=== PATIENT | female | born 1985 | race Caucasian/White ===

== ENCOUNTER → 2017-03-16 | Outpatient (CLI) | payer OTHER ==
[~2017-03-16] MED LIST: IOPAMIDOL 76% 50 ML INFUS BTL 50 ML ONE; IOPAMIDOL 76% 75 ML INFUS BTL 75 ML ONE; NS 0.9% 50 ML VIAL 100 ML ONE
--- NOTE | 2017-03-16 12:23 | RADIOLOGY IMAGING REPORT ---
FACILITY: [facility] PATIENT NAME: Cece Soto : 1985 MR: [id number] V: [id number] EXAM DATE: ORDERING PHYSICIAN: BRENDA ENGLISH TECHNOLOGIST: [facility] Patient: Cece Soto : 1985 Visit/Account:[id number] Date of Sevice: 03/16/2017 VENOUS DOPP LOW RIGHT EXTREMIT Indication: Right leg pain. Comparison: None. Procedure: There has been satisfactory grayscale as well as color flow and Doppler waveform analysis of the deep vessels of the right lower extremity. Findings: The common femoral, profunda femoral, superficial femoral, popliteal and infrapopliteal ves sels so far as visualized are compressible with grayscale imaging. All these vessels show flow with c olor Doppler imaging. Following calf compression there is normal directional augmentation of the Dopp ler waveform. Note that one of the posterior tibial veins is noncompressible and is difficult to see flow in. Differential diagnosis would include prior thrombus, acute thrombus or nonvisualization re lated to technical features. The proximal right greater saphenous vein is compressible with grayscale imaging and color flow cassidy sis shows normal flow. The Doppler waveform shows normal direction of flow. The left common femoral vein on the other side has normal flow with respiratory variation identified. IMPRESSION: 1. No prominent findings of deep vein thrombosis. 2. Of note one of the posterior tibial veins in the calf cannot be seen while the other can. Differ ential diagnosis would include technical nonvisualization, acute DVT of just this vein or chronic thr ombus of this vein. Correlation clinical findings recommended. Results were called to BRENDA ENGLISH M.D. At 03/16/2017 12:18 PM. Report Dictated By: Francesco Meredith MD at 03/16/2017 12:05 PM Report E-Signed By: Francesco Meredith MD at 03/16/2017 12:18 PM WSN:[id number]
--- NOTE | 2017-03-16 15:19 | RADIOLOGY IMAGING REPORT ---
FACILITY: [facility] - [place] PATIENT NAME: Cece Soto : 1985 MR: [id number] V: [id number] EXAM DATE: ORDERING PHYSICIAN: BRENDA ENGLISH TECHNOLOGIST: [place] [facility] [place]: Cece Soto : 1985 Visit/Account:[id number] Date of Sevice: 03/16/2017 CTA CHEST WW/O CNTR (PULM ANG) HISTORY: Shortness of breath ADDITIONAL HISTORY: None. TECHNIQUE: CTA chest with intravenous contrast. Axial imaging acquired following administration of IV contrast timed for maximum opacification of the pulmonary arterial vasculature. Slab 3-D MIP steven nstructed images were also created for further evaluation and interpretation. Reconstruction of the [facility] data set includes multiplanar 2-D in the sagittal and coronal planes and 3-D reconstructed marissa nal slab MIP series. 3-D images were created by the technologist. Dose Lowering Technique One of the following dose optimization techniques was utilized in the performance of this exam: Autom ated exposure control; adjustment of the mA and/or kV according to the patient's size; or use of an i terative reconstruction technique. Specific details can be referenced in the facility's radiology C T exam operational policy. CONTRAST: 75 mL Isovue-370 COMPARISON: None. FINDINGS: Lungs/pleura: There are minimal reticular changes seen in the inferior aspect of the right middle lo be Heart/vessels: Pulmonary emboli identified in the lobar segmental and subsegmental arterial branches to the right upper lobe and both lower lobes and right middle lobe and segmental and subsegmental ar terial branches to the left upper lobe. Mediastinum/lymph nodes: There is a small amount of soft tissue density material in the anterior med iastinum which may represent residual thymic tissue Visualized upper abdomen: Negative. Bones/soft tissues: Mild spondylotic changes of the thoracic spine Additional findings: None IMPRESSION: There is a moderate volume bilateral pulmonary emboli as described above Minimal reticular changes in the inferior aspect of the right middle lobe likely dependent changes There is a small amount soft tissue density material in the anterior mediastinum which may represent residual thymic tissue Results were called to BRENDA ENGLISH at 03/16/2017 3:13 PM. Report Dictated By: Ceci Rockwell MD at 03/16/2017 2:57 PM Report E-Signed By: Ceci Rockwell MD at 03/16/2017 3:15 PM WSN:[email or web address]
== END ==
LOC: US 10:35
PROVIDERS: ATTEND Physician Assistant
DX: I26.99 Other pulmonary embolism without acute cor pulmonale (principal); R91.8 Other nonspecific abnormal finding of lung field
CPT/HCPCS: 71275; 93971; J7050; Q9967

== ENCOUNTER → 2017-03-16 | Outpatient (REF) | payer OTHER | LOC: ZZSENDIN 10:42 | PROVIDERS: ATTEND Physician Assistant | DX: R06.02 Shortness of breath (principal) | CPT/HCPCS: 81025; 85379 ==

== ENCOUNTER → 2017-03-16 | Outpatient (CLI) | payer OTHER ==
[2017-03-16 18:35] LABS: INR 0.95
== END ==
LOC: LAB 16:40
PROVIDERS: ATTEND Physician Assistant
DX: R60.0 Localized edema (principal)
CPT/HCPCS: 36415; 81241; 85300; 85306; 85384; 85610; 85613; 85730

== ENCOUNTER 2017-04-05 08:30 | Outpatient (RCR) | payer OTHER ==
[2017-03-29 08:22] VITALS: BP 126/95
--- NOTE | 2017-03-29 17:21 | CONSULTATION ---
EVENT DATE: March 29, 2017] REFERRING PHYSICIAN Merry Harley REASON FOR CONSULTATION Evaluation and management of pulmonary embolus. HISTORY OF PRESENT ILLNESS Patient is a 31-year-old female with known history of depression and anxiety who was maintained on oral contraceptive pills since the age of 16, who presented with a swollen right leg with pain and redness the whole of the month of February, and this was followed by chest tightness, palpitations and weakness , and the patient fainted at home. So she saw her primary care provider, Merry Harley, who started a workup for venous thromboembolism. Patient had a double ultrasound on March 16, 2017 which was suggestive of right posterior tibial vein thrombosis. CTA of the chest done on March 16, 2017 showed bilateral pulmonary embolism involving lobar segmental and subsegmental arterial branches of the right upper lobe, right middle lobe and right lower lobe and left lower lobe, and subsegmental arterial branches of the left upper lobe. Patient started treatment with Xarelto. She is currently on 15 mg twice daily and she will have it for another week prior to going to 20 mg once daily. She had workup for thrombophilia including lupus anticoagulant, protein S activities, antithrombin III, factor V Leiden, and all came back negative. PAST MEDICAL HISTORY 1. Pseudotumor cerebri on Diamox. 2. Depression and anxiety with suicidal ideation, on treatment. PAST SURGICAL HISTORY 1. Lumbar puncture. 2. Extraction of impacted tooth. SOCIAL HISTORY Patient is with no children. 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 She is a never smoker. She drinks occasionally. Denies any abuse of illicit drugs. FAMILY HISTORY Negative for cancer or blood diseases. CURRENT MEDICATIONS 1. Diamox 500 mg once daily. 2. Citalopram 40 mg once daily. 3. Bupropion 75 mg twice daily. 4. Cyclobenzaprine 10 mg as needed. 5. Diclofenac as needed. 6. Xarelto 15 mg twice daily. ALLERGIES PENCILLIN while she was young and does not remember the reaction. REVIEW OF SYSTEMS: CONSTITUTIONAL: No appetite or weight change. No fever, chills or sweating. No recent infection. HEENT: Ears: No tinnitus or hearing problem. Nose: She has epistaxis since she started on blood thinner. Throat: No sore throat or mouth ulcers. Eyes: No diplopia or visual changes. RESPIRATORY: She has shortness of breath, which is getting much better after starting anticoagulation with Xarelto. CARDIOVASCULAR: No chest pain, orthopnea, or paroxysmal nocturnal dyspnea (PND) . No edema. No palpitations. GASTROINTESTINAL: No nausea or vomiting. No diarrhea or constipation. No change in bowel movements. No heartburn or swallowing difficulties. No abdominal pain. No jaundice. No hematemesis, melena or rectal bleeding. GENITOURINARY: No hematuria or dysuria. MUSCULOSKELETAL: She has tension in her muscles of the neck and shoulders. NEUROLOGICAL: She has headache with flare-up of pseudotumor cerebri. HEMATOLOGIC/LYMPHATIC: She bruises easily. She is tired. SKIN: No skin rash or lumps. PSYCHIATRIC: No anxiety or depression. PHYSICAL EXAMINATION GENERAL: Looks stable. Well-developed, well-nourished, and in no acute distress. VITAL SIGNS: Blood pressure 126/95, pulse 104 per minute, respirations 18 per minute, temperature 97.61 pulse oximetry 90% on room air. HEENT: Head: Atraumatic. No sinus tenderness to palpation. Eyes: No icterus or conjunctivitis. Mouth and throat: No oral thrush or mucositis. NECK: Supple. No cervical or supraclavicular lymphadenopathy. LUNGS: Clear to auscultation and percussion bilaterally. HEART: Regular rate and rhythm. No gallops, murmurs, clicks or rubs. ABDOMEN: Soft and lax. No tenderness. No hepatosplenomegaly. No masses. EXTREMITIES: No cyanosis, clubbing or edema. LYMPHATICS: No peripheral lymphadenopathy. NEUROLOGICAL: Conscious, alert and oriented times three. No focal motor or sensory deficits. PSYCHIATRIC: Mood and affect appear normal. SKIN: No skin rash, bruise or purpuric eruption. ASSESSMENT 1. Right leg deep venous thrombosis, most probably in the posterior tibial vein with moderate volume pulmonary embolism involving lobar segmental and subsegmental of the right upper lobe, right middle lobe, right lower lobe and left lower lobe with subsegmental arterial involvement of the left upper lobe. Patient was maintained on oral contraceptive pills and patient was advised to quit oral contraceptive pills as the estrogen could be the underlying cause for her blood clotting. Thrombophilia workup was negative, but complete thrombophilia workup was not done, so I am planning to complete her thrombophilia workup, so I am planning to check her anticardiolipin antibodies, beta 2 glycoprotein antibodies, antiphospholipid antibody panel, prothrombin gene mutation, protein C activities and total antigen, and fasting homocysteine level. I am planning to continue anticoagulation for at least one year, and if the patient will have an underlying thrombophilia disease, she may be a candidate for lifelong anticoagulation. I explained that to the patient and she is agreeable with the plan of management. 2. Pseudotumor cerebri on diamox. 3. Depression/anxiety, on treatment. PLAN 1. Thrombophilia workup. 2. Continue Xarelto for at least one year. 3. Patient to return in one week for further evaluation and management. 4. Patient is to contact us for any new concerns or complaints. ELOINA
[~2017-04-05] VITALS: Ht 167.6 cm; Wt 118.3 kg
[~2017-04-05 08:30] MED LIST changes: +ACET500C35 PO; +BUPR-147 PO; +CITA-139 PO; +CYCL10TA29 PO; +DICL-195 PO; -IOPAMIDOL 76% 50 ML INFUS BTL 50 ML ONE; -IOPAMIDOL 76% 75 ML INFUS BTL 75 ML ONE; -NS 0.9% 50 ML VIAL 100 ML ONE; +RIVA1TAB PO
[2017-04-05 08:36] VITALS: BP 127/88
[2017-04-05] MEDS ORDERED: LEVO1TBD PO (08:39)
--- NOTE | 2017-04-05 09:27 | EL-TARABILY ONCOLOGY NOTE ---
EVENT DATE: April 05, 2017 DIAGNOSES 1. Right leg deep vein thrombosis involving the posterior tibial vein. 2. Pulmonary embolism bilaterally. CHIEF COMPLAINT Patient is here today for follow up of her venothromboembolus and possible thrombophilia. HEMATOLOGY HISTORY Patient is a 31-year-old female with known history of depression and anxiety who was maintained on oral contraceptive pills since the age of 16, who presented with a swollen right leg with pain and redness the whole of the month of February, and this was followed by chest tightness, palpitations and weakness , and the patient fainted at home. So she saw her primary care provider, Merry Harley, who started a workup for venous thromboembolism. Patient had a double ultrasound on March 16, 2017 which was suggestive of right posterior tibial vein thrombosis. CTA of the chest done on March 16, 2017 showed bilateral pulmonary embolism involving lobar segmental and subsegmental arterial branches of the right upper lobe, right middle lobe and right lower lobe and left lower lobe, and subsegmental arterial branches of the left upper lobe. Patient started treatment with Xarelto. She is currently on 15 mg twice daily and she will have it for another week prior to going to 20 mg once daily. She had workup for thrombophilia including lupus anticoagulant, protein S activities, antithrombin III, factor V Leiden, and all came back negative. Anticardiolipin antibodies, beta 2 glycoprotein antibodies, protein C antigen and functional protein C all came back normal. All of the labs for the phospholipid antibody syndrome panel came back negative, but some tests are still pending. HISTORY OF PRESENT ILLNESS Patient is doing fine today. She does not have complaint except for occasional swelling of her right lower extremity, especially on prolonged sitting. PAST MEDICAL HISTORY 1. Pseudotumor cerebri on Diamox. 2. Depression and anxiety with suicidal ideation, on treatment. PAST SURGICAL HISTORY 1. Lumbar puncture. 2. Extraction of impacted tooth. SOCIAL HISTORY Patient is with no children. 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 She is a never smoker. She drinks occasionally. Denies any abuse of illicit drugs. FAMILY HISTORY Negative for cancer or blood diseases. CURRENT MEDICATIONS 1. Diamox 500 mg once daily. 2. Citalopram 40 mg once daily. 3. Bupropion 75 mg twice daily. 4. Cyclobenzaprine 10 mg as needed. 5. Diclofenac as needed. 6. Xarelto 15 mg twice daily. ALLERGIES PENICILLIN while she was young and does not remember the reaction. REVIEW OF SYSTEMS CONSTITUTIONAL: No appetite or weight change. No fever, chills or sweating. No recent infection. HEENT: Ears: No tinnitus or hearing problem. Nose: No nasal discharge or epistaxis. Throat: No sore throat or mouth ulcers. Eyes: No diplopia or visual changes. RESPIRATORY: No shortness of breath. No cough, expectoration or hemoptysis. CARDIOVASCULAR: No chest pain, orthopnea, or paroxysmal nocturnal dyspnea (PND) . No edema. No palpitations. GASTROINTESTINAL: No nausea or vomiting. No diarrhea or constipation. No change in bowel movements. No heartburn or swallowing difficulties. No abdominal pain. No jaundice. No hematemesis, melena or rectal bleeding. GENITOURINARY: No hematuria or dysuria. MUSCULOSKELETAL: Patient has edema of the right lower extremity sometimes, especially on prolonged sitting or standing. NEUROLOGICAL: No tingling or numbness in the hands or feet. No headaches or convulsions. HEMATOLOGIC/LYMPHATIC: No bleeding or easy bruising. No weakness or fatigued. No enlarged lymph nodes. SKIN: No skin rash or lumps. PSYCHIATRIC: No anxiety or depression. PHYSICAL EXAMINATION GENERAL: Looks stable. Well-developed, well-nourished, and in no acute distress. VITAL SIGNS: Blood pressure 127/88, pulse 108 per minute, respirations 16 per minute, temperature 98.9, pulse oximetry 91% on room air. HEENT: Head: Atraumatic. No sinus tenderness to palpation. Eyes: No icterus or conjunctivitis. Mouth and throat: No oral thrush or mucositis. NECK: Supple. No cervical or supraclavicular lymphadenopathy. LUNGS: Clear to auscultation and percussion bilaterally. HEART: Regular rate and rhythm. No gallops, murmurs, clicks or rubs. ABDOMEN: Soft and lax. No tenderness. No hepatosplenomegaly. No masses. EXTREMITIES: No cyanosis, clubbing or edema. LYMPHATICS: No peripheral lymphadenopathy. NEUROLOGICAL: Conscious, alert and oriented times three. No focal motor or sensory deficits. PSYCHIATRIC: Mood and affect appear normal. SKIN: No skin rash, bruise or purpuric eruption. DIAGNOSTIC/LABORATORY STUDIES Protein C antigen is normal at 86%. Functional protein C is normal at 129%. Anticardiolipin antibodies are negative. Beta 2 glycoprotein antibodies are also negative. The antiphospholipid antibody panel, so far all the tests done are negative, but some of the tests are still pending. ASSESSMENT 1. Right leg deep vein thrombosis, most probably involving the posterior tibial vein with moderate volume pulmonary embolism involving lobar segmental and subsegmental of the right upper lobe, right middle lobe and right lower lobe and left lower lobe with subsegmental arterial involvement of the left upper lobe. Patient is maintained on Xarelto. She was actually on oral contraceptive pills when she had her blood clot, which was discontinued. Thrombophilia workup so far is negative. I will await the rest of the antiphospholipid antibody panel, and if those tests come back negative, I will continue anticoagulation for a total of one year, but if those tests come back positive, then will repeat the positive test in another three months to be sure that the patient has antiphospholipid antibody syndrome, and if this is the case with the volume of her pulmonary embolism, she may be a candidate for lifelong anticoagulation. I explained that to the patient. She is agreeable with the plan of management. I am planning to see her in in 6 months unless her tests will come back positive, then we will repeat those tests in 3 months, and I will see her after that. 2. Pseudotumor cerebri on Diamox. 3. Depression and anxiety, on treatment. PLAN 1. Await the result of the antiphospholipid antibody panel. 2. Continue Xarelto for at least one year. 3. Patient to return in six months. 4. Patient is to contact us for any new concerns or complaints. ELOINA
== END 2017-04-06 10:04 | disposition home or self-care (01) ==
LOC: ONC 08:30
PROVIDERS: ATTEND Internal Medicine Hematology
DX: I82.401 Acute embolism and thrombosis of unspecified deep veins of right lower extremity (principal); I26.99 Other pulmonary embolism without acute cor pulmonale; G93.2 Benign intracranial hypertension; Z79.01 Long term (current) use of anticoagulants; Z79.899 Other long term (current) drug therapy
CPT/HCPCS: 81240; 83090; 83516; 85302; 85303; 86146; 86147; 86148; 99202; 99212

== ENCOUNTER 2017-11-01 14:49 | Outpatient (RCR) | payer OTHER ==
[~2017-11-01 14:49] MED LIST changes: -CITA-139 PO; +CITA-145 PO; +LEVO1TBD PO
[2017-11-01 15:08] VITALS: BP 125/91
--- NOTE | 2017-11-01 18:52 | EL-TARABILY ONCOLOGY NOTE ---
EVENT DATE: November 01, 2017 DIAGNOSES 1. Right leg deep vein thrombosis involving the posterior tibial vein. 2. Pulmonary embolism bilaterally. CHIEF COMPLAINT Patient is here today for followup of her venous thromboembolism and possible thrombophilia. HEMATOLOGY HISTORY Patient is a 32-year-old female with known history of depression and anxiety who was maintained on oral contraceptive pills since the age of 16. She presented with a swollen right leg with pain and redness the whole of the month of February. This was followed by chest tightness, palpitations, and weakness, and the patient fainted at home. She saw her primary care provider, Merry Harley, who started a workup for venous thromboembolism. Patient had a double ultrasound on March 16, 2017, which was suggestive of right posterior tibial vein thrombosis. CTA of the chest done on March 16, 2017, showed bilateral pulmonary embolism involving lobar segmental and subsegmental arterial branches of the right upper lobe, right middle lobe, right lower lobe, left lower lobe, and subsegmental arterial branches of the left upper lobe. Patient started treatment with Xarelto. She is currently on 15 mg twice daily, and she will have it for another week prior to going to 20 mg once daily. She had workup for thrombophilia including lupus anticoagulant, protein S activities , antithrombin III, factor V Leiden, and all came back negative. Anticardiolipin antibodies, beta-2 glycoprotein antibodies, protein C antigen, and functional protein C all came back normal. All of the labs for the phospholipid antibody syndrome panel came back negative, but some tests are still pending. HISTORY OF PRESENT ILLNESS Patient is here today followup of her venous thromboembolism. She is complaining of easy bruising and some fatigue which she attributed to being out of shape, but other than that, she is really doing fine. PAST MEDICAL HISTORY 1. Pseudotumor cerebri, on Diamox. 2. Depression and anxiety with suicidal ideation, on treatment. PAST SURGICAL HISTORY 1. Lumbar puncture. 2. Extraction of impacted tooth. SOCIAL HISTORY Patient is with no children. 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 She is a never smoker. She drinks occasionally. Denies any abuse of illicit drugs. FAMILY HISTORY Negative for cancer or blood diseases. CURRENT MEDICATIONS 1. Diamox 500 mg once daily. 2. Citalopram 40 mg once daily. 3. Bupropion 75 mg twice daily. 4. Cyclobenzaprine 10 mg as needed. 5. Diclofenac as needed. 6. Xarelto 15 mg twice daily. ALLERGIES PENICILLIN while she was young and does not remember the reaction. REVIEW OF SYSTEMS CONSTITUTIONAL: No appetite or weight change. No fever, chills, or sweating. No recent infection. HEENT: Ears: No tinnitus or hearing problem. Nose: No nasal discharge or epistaxis. Throat: No sore throat or mouth ulcers. Eyes: No diplopia or visual changes. RESPIRATORY: No shortness of breath. No cough, expectoration, or hemoptysis. CARDIOVASCULAR: No chest pain, orthopnea, or paroxysmal nocturnal dyspnea (PND) . No edema. No palpitations. GASTROINTESTINAL: No nausea or vomiting. No diarrhea or constipation. No change in bowel movements. No heartburn or swallowing difficulties. No abdominal pain. No jaundice. No hematemesis, melena, or rectal bleeding. GENITOURINARY: No hematuria or dysuria. MUSCULOSKELETAL: Patient has edema of the right lower extremity sometimes, especially on prolonged sitting or standing. NEUROLOGICAL: No tingling or numbness in the hands or feet. No headaches or convulsions. HEMATOLOGIC/LYMPHATIC: She bruises easily. She is weak, tired, and fatigued. No enlarged lymph nodes. SKIN: No skin rash or lumps. PSYCHIATRIC: No anxiety or depression. PHYSICAL EXAMINATION GENERAL: Looks stable. Well developed, well nourished, and in no acute distress. VITAL SIGNS: Blood pressure 125/91, pulse 77 per minute, respirations 16 per minute, temperature 98.1, pulse ox 95% on room air. HEENT: Head: Atraumatic. No sinus tenderness to palpation. Eyes: No icterus or conjunctivitis. Mouth and throat: No oral thrush or mucositis. NECK: Supple. No cervical or supraclavicular lymphadenopathy. LUNGS: Clear to auscultation and percussion bilaterally. HEART: Regular rate and rhythm. No gallops, murmurs, clicks, or rubs. ABDOMEN: Soft and lax. No tenderness. No hepatosplenomegaly. No masses. EXTREMITIES: No cyanosis, clubbing, or edema. LYMPHATICS: No peripheral lymphadenopathy. NEUROLOGICAL: Conscious, alert, and oriented times three. No focal motor or sensory deficits. PSYCHIATRIC: Mood and affect appear normal. SKIN: No skin rash, bruise, or purpuric eruption. DIAGNOSTIC DATA Antiphospholipid antibody testing including anticardiolipin antibody, beta-2 glycoprotein antibody, antiphospholipid antibody panel, and lupus anticoagulant all came back normal. Protein C functional total and free all came normal. ASSESSMENT 1. Right leg deep vein thrombosis involving posterior tibial vein with moderate volume pulmonary embolus involving lobar segmental and subsegmental branches of the right upper lobe, right middle lobe, right lower lobe, and left lower lobe, with subsegmental arterial involvement of the left upper lobe. The patient started Xarelto in March 2017, and she has maintained on Xarelto so far. She was on oral contraceptive pills when she had her blood clot, which were discontinued. Thrombophilia workup is negative. Her antiphospholipid antibody panel, protein C activity, and total antigen all came back negative. I am planning to continue anticoagulation for a total of one year, so I am planning to see the patient again in March 2018, and most probably we will stop anticoagulation at that time. Patient was advised to avoid the use of estrogenic compounds in the future, especially oral contraceptive pills. 2. Pseudotumor cerebri, on Diamox. 3. Depression and anxiety, on treatment. PLAN 1. Continue Xarelto for a total of one year. 2. Patient to return in March 2018. 3. Patient is to contact us for any new concerns or complaints. ELOINA
== END 2017-12-12 08:59 | disposition home or self-care (01) ==
LOC: ONC 14:49
PROVIDERS: ATTEND Internal Medicine Hematology
DX: I82.401 Acute embolism and thrombosis of unspecified deep veins of right lower extremity (principal); I26.92 Saddle embolus of pulmonary artery without acute cor pulmonale; Z79.01 Long term (current) use of anticoagulants; Z79.899 Other long term (current) drug therapy; R60.0 Localized edema; R06.02 Shortness of breath; F32.9 Major depressive disorder, single episode, unspecified
CPT/HCPCS: 99212

== ENCOUNTER 2018-04-05 07:14 | Outpatient (RCR) | payer OTHER ==
[2018-04-05 14:57] VITALS: BP 130/98
--- NOTE | 2018-04-09 17:48 | ONCOLOGY FOLLOW UP NOTE ---
EVENT DATE: April 05, 2018 CHIEF COMPLAINT Followup for right lower extremity DVT and bilateral pulmonary emboli. HISTORY OF PRESENT ILLNESS Patient is a 32-year-old female who was seen today in followup. She has now been on Xarelto for a total of one year. Overall, she has tolerated this well. She has had no issues with bleeding. She does have known pseudotumor cerebri and feels she needs to follow up with Neurology. She has had no issues with lower extremity swelling, shortness of breath, or chest discomfort. She does note some mild discomfort in the right lower extremity, but no indications of further clotting. HEMATOLOGY HISTORY Patient is a 32-year-old female who was maintained on oral contraceptives since age 16. She presented with a swelling in her right leg which had been ongoing the month of February 2017. This was followed by chest tightness, palpitations, and weakness. Patient fainted at home. She was then seen and underwent ultrasound with CT angiogram. Ultrasound on 03/16/17 showed a right posterior tibial vein thrombosis. CT angiogram on 03/16/17 showed bilateral pulmonary emboli involving lobar, segmental, and subsegmental arterial branches of the right upper lobe, right middle lobe, right lower lobe, left lower lobe, and subsegmental arterial branches of the left upper lobe. She began treatment with Xarelto in February 2017. Hypercoagulable workup was negative. MEDICAL HISTORY 1. DVT/bilateral PE, February 2017. 2. Pseudotumor cerebri, on Diamox. 3. Depression and anxiety. SURGICAL HISTORY 1. Lumbar puncture. 2. Extraction of impacted tooth. FAMILY HISTORY Negative for malignancy or blood disorders. SOCIAL HISTORY Patient is . She has no children. 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 She is a never smoker. She drinks occasionally. She denies abuse of illicit drugs. MEDICATIONS 1. Diamox 500 mg daily. 2. Bupropion 75 mg b.i.d. 3. Xarelto 20 mg daily. 4. Citalopram 20 mg daily. REVIEW OF SYSTEMS A 12-point review of systems is performed and is negative except as stated above. PHYSICAL EXAMINATION VITAL SIGNS: BP 130/88, pulse 86, respirations 16, temp 99.2, O2 sat 98%. GENERAL: Patient is well-developed, well-nourished female in no acute distress. HEAD: Normocephalic, atraumatic. EYES: Sclerae anicteric. MOUTH: Moist mucous membranes. NECK: Supple. No palpable adenopathy. LUNGS: Slightly diminished, but clear bilaterally. CARDIOVASCULAR: Heart rate regular, 86 per minute, without murmur, S3, or S4. EXTREMITIES: No edema. NEUROLOGIC: Nonfocal. IMPRESSION AND PLAN The patient is a 32-year-old female who had been on oral contraceptives since the age of 16. She developed swelling in her right lower extremity in February 2017, followed by chest tightness, palpitations, and weakness. She was diagnosed with a right lower extremity deep venous thrombosis as well as bilateral pulmonary emboli. She began Xarelto in February 2017. 1. Hypercoagulable state. We reviewed her labs which were negative for any hypercoagulable issues. She has now completed anticoagulation for a total of one year, so she will discontinue the Xarelto at this time. We discussed the symptoms of any issues related to clotting, and she feels she is well aware of these. We also discussed the importance of routine exercise for general health and circulation. 2. Pseudotumor cerebri. Fairly well maintained on Diamox. She states she does need to follow up with Neurology and plans to make an appointment. 3. Patient will follow up with us on a p.r.n. basis. As above, discussed the signs of possible clotting. ELOINA
== END 2018-04-08 15:44 | disposition home or self-care (01) ==
LOC: ONC 07:14
PROVIDERS: ATTEND Internal Medicine Hematology
DX: I82.401 Acute embolism and thrombosis of unspecified deep veins of right lower extremity (principal); I26.92 Saddle embolus of pulmonary artery without acute cor pulmonale; Z79.01 Long term (current) use of anticoagulants; Z79.899 Other long term (current) drug therapy; R60.0 Localized edema; R06.02 Shortness of breath; F32.9 Major depressive disorder, single episode, unspecified
CPT/HCPCS: 99212